=== PATIENT | female | born 1950 | race Caucasian/White ===

== ENCOUNTER 2017-08-19 18:49 | Emergency (ER) | payer MEDICAID ==
[2017-08-19 19:41] LABS: UA SPECIFIC GRAVITY 1.015 (1.005-1.035); microscopic required? YES; urine erythrocyte NEGATIVE (NEGATIVE)
[2017-08-19 19:43] LABS: BASOPHIL % 0.7 % (0-2); PLATELET COUNT 190 x10^3mcL (130-400); RED CELL DISTRIBUTION WIDTH 13.7 % (11.5-14.5)
[2017-08-19 19:53] LABS: CALCIUM 8.3 mg/dL (8.5-10.1); CARBON DIOXIDE 27.8 mmol/L (21-32); CHLORIDE SERUM 108 mmol/L (98-107); CREATININE SERUM 0.7 mg/dL (0.6-1.0); GFR1 > 60 mL/min; GLUCOSE SERUM 115 mg/dL (74-106); MAGNESIUM 2.2 mg/dL (1.8-2.4); POTASSIUM SERUM 3.7 mmol/L (3.5-5.1); SODIUM SERUM 144 mmol/L (136-145)
[2017-08-19 21:34] VITALS: BP 118/78
== END 2017-08-19 21:34 | disposition home or self-care (01) ==
LOC: ED 18:49
PROVIDERS: Emergency Medicine
DX: N39.0 Urinary tract infection, site not specified (principal)
CPT/HCPCS: J2405; J7030; J8597; Q0092

== ENCOUNTER 2018-02-08 15:04 | Emergency (ER) | payer OTHER ==
[~2018-02-08] VITALS: Ht 152.4 cm; Wt 52.2 kg
[2018-02-08 15:14] VITALS: Ht 152.4 cm; Wt 52.2 kg
[2018-02-08 16:21] VITALS: BP 142/64
== END 2018-02-08 16:21 | disposition home or self-care (01) ==
LOC: ED 15:04
DX: S52.501A Unspecified fracture of the lower end of right radius, initial encounter for closed fracture (principal); M81.0 Age-related osteoporosis without current pathological fracture; M19.90 Unspecified osteoarthritis, unspecified site; W01.0XXA Fall on same level from slipping, tripping and stumbling without subsequent striking against object, initial encounter; Y93.89 Activity, other specified; Y92.89 Other specified places as the place of occurrence of the external cause; Y99.8 Other external cause status
CPT/HCPCS: A4570; Q0092

== ENCOUNTER 2019-08-03 20:36 | Emergency (ER) | payer MEDICAID ==
[~2019-08-03] VITALS: Ht 152.4 cm; Wt 52.2 kg
[2019-08-03 20:43] VITALS: Ht 152.4 cm; Wt 52.2 kg
[2019-08-04 00:36] VITALS: BP 130/70
== END 2019-08-04 00:36 | disposition home or self-care (01) ==
LOC: ED 20:36
DX: M19.90 Unspecified osteoarthritis, unspecified site (principal); M54.9 Dorsalgia, unspecified
CPT/HCPCS: J1885